=== PATIENT | male | born 1990 | race Two or more races ===

== ENCOUNTER 2022-08-09 13:22 | Emergency (ER) | payer SELFPAY ==
[~2022-08-09] VITALS: Ht 170.2 cm; Wt 80.1 kg
[2022-08-09 14:51] VITALS: BP 148/101
[2022-08-09 16:00] LABS: Potassium 4.1 mmol/L (3.5-5.1)
[2022-08-09 16:01] LABS: Albumin 3.2 g/dL (3.4-5.0); Calcium 9.3 mg/dL (8.5-10.1)
[2022-08-09 16:03] LABS: BUN/Creatinine Ratio 7.4
[2022-08-09 16:06] LABS: Bilirubin, Total 0.3 mg/dL (0.2-1.0); Total Protein 6.9 g/dL (6.4-8.2)
[2022-08-09 16:46] LABS: Basophils # (auto) 0 10 ^3/uL (0-0.2); Eosinophils # (auto) 1.2 10 ^3/uL (0-0.8); Lymphocytes # (auto) 1.7 10 ^3/uL (0.4-5.4); Mean Corpuscular Hemoglobin 28.8 pg (28.0-32.0)
[2022-08-09 16:51] LABS: Basophils % (auto) 0.3 % (0.0-2.0); Eosinophils % (auto) 6.9 % (0.0-7.0); Hematocrit 43.6 % (41.0-53.0); Hemoglobin 14.3 g/dL (13.5-17.5); Lymphocytes % (auto) 10.3 % (10.0-50.0); Mean Corpuscular Hgb Conc. 32.7 g/dL (32.0-36.0); Monocytes % (auto) 11.9 % (0.0-12.0); Neutrophils # (auto) 11.7 10 ^3/uL (1.6-8.6); Neutrophils % (auto) 70.6 % (37.0-80.0); Red Blood Cells 4.96 10^6/uL (4.5-5.90); Red Cell Distribution Width 12.8 % (11.8-14.3); White Blood Cell 16.6 10^3/uL (4.4-10.8)
== END 2022-08-09 16:49 | disposition left against medical advice (07) ==
LOC: ER 13:22
DX: K52.9 Noninfective gastroenteritis and colitis, unspecified (principal); Z53.29 Procedure and treatment not carried out because of patient's decision for other reasons
CPT/HCPCS: 36415; 74176; 80053; 83690; 85025

== ENCOUNTER 2022-08-12 11:07 | Inpatient (IN) | payer BC ==
[~2022-08-12] VITALS: Ht 170.2 cm; Wt 76.7 kg
[2022-08-12 12:51] LABS: Basophils % (auto) 0.3 % (0.0-2.0); Eosinophils # (auto) 1.8 10 ^3/uL (0-0.8); Monocytes # (auto) 1.5 10 ^3/uL (0-1.3); Red Cell Distribution Width 12.8 % (11.8-14.3)
[2022-08-12 12:53] LABS: Basophils # (auto) 0 10 ^3/uL (0-0.2); Hematocrit 43.5 % (41.0-53.0); Hemoglobin 14.5 g/dL (13.5-17.5); Lymphocytes # (auto) 1.5 10 ^3/uL (0.4-5.4); Lymphocytes % (auto) 9.3 % (10.0-50.0); Mean Corpuscular Hemoglobin 29.2 pg (28.0-32.0); Mean Corpuscular Hgb Conc. 33.3 g/dL (32.0-36.0); Mean Corpuscular Volume 87.6 fL (80.0-100.0); Monocytes % (auto) 9.1 % (0.0-12.0); Neutrophils # (auto) 11.5 10 ^3/uL (1.6-8.6); Neutrophils % (auto) 70.3 % (37.0-80.0); Red Blood Cells 4.97 10^6/uL (4.5-5.90); White Blood Cell 16.4 10^3/uL (4.4-10.8)
[2022-08-12 13:27] LABS: Albumin 2.9 g/dL (3.4-5.0); Calcium 8.8 mg/dL (8.5-10.1); Potassium 3.9 mmol/L (3.5-5.1)
[2022-08-12 13:30] LABS: BUN/Creatinine Ratio 9.8; Bilirubin, Total 0.3 mg/dL (0.2-1.0); Total Protein 7.3 g/dL (6.4-8.2)
[2022-08-12] MEDS ORDERED: PANTOPRAZOLE 40 MG/10 ML VIAL INJ IV ONE (14:45)
[2022-08-12] MEDS ORDERED: ONDANSETRON HCL 4 MG/2 ML VIAL IV ONE (14:45)
[2022-08-12] MEDS ORDERED: MORPHINE SULFATE 4 MG/ML SYR/VIAL IV ONE (14:45)
[2022-08-12 14:52] LABS: Urine Specific Gravity 1.024 (1.001-1.035)
[2022-08-12 14:53] LABS: Urine Blood Negative /uL (Negative)
[2022-08-12] MEDS ORDERED: ONDANSETRON HCL 4 MG/2 ML VIAL IV PRN (16:45)
[2022-08-12] MEDS ORDERED: MORPHINE SULFATE INJ 2 MG/ml SYRG IV PRN (16:45)
[2022-08-12] MEDS: SODIUM CHLORIDE 0.9% 1,000 ML IV SCH (23:21)
[2022-08-12] MEDS: metroNIDAZOLE 500MG/100ML 100 ML IV SCH (23:22)
[2022-08-13] MEDS: SODIUM CHLORIDE 0.9% 1,000 ML IV SCH ×3 (04:54→18:03)
[2022-08-13 04:56] LABS: Basophils # (auto) 0 10 ^3/uL (0-0.2); Basophils % (auto) 0.2 % (0.0-2.0); Eosinophils % (auto) 13.2 % (0.0-7.0); Hematocrit 38.1 % (41.0-53.0); Hemoglobin 12.8 g/dL (13.5-17.5); Lymphocytes # (auto) 1.5 10 ^3/uL (0.4-5.4); Lymphocytes % (auto) 9.9 % (10.0-50.0); Mean Corpuscular Hemoglobin 29.3 pg (28.0-32.0); Mean Corpuscular Hgb Conc. 33.5 g/dL (32.0-36.0); Mean Corpuscular Volume 87.5 fL (80.0-100.0); Monocytes # (auto) 1.6 10 ^3/uL (0-1.3); Monocytes % (auto) 10.7 % (0.0-12.0); Neutrophils # (auto) 9.9 10 ^3/uL (1.6-8.6); Nucleated Red Blood Cells % 0.1 %; Red Blood Cells 4.36 10^6/uL (4.5-5.90); Red Cell Distribution Width 12.6 % (11.8-14.3); White Blood Cell 15.1 10^3/uL (4.4-10.8)
[2022-08-13 05:11] LABS: Albumin 2.5 g/dL (3.4-5.0); Calcium 8.1 mg/dL (8.5-10.1); Potassium 3.7 mmol/L (3.5-5.1)
[2022-08-13 05:14] LABS: BUN/Creatinine Ratio 9.6; Bilirubin, Total 0.5 mg/dL (0.2-1.0); Total Protein 6.2 g/dL (6.4-8.2)
[2022-08-13] MEDS: metroNIDAZOLE 500MG/100ML 100 ML IV SCH ×3 (06:57→21:43)
[2022-08-13 08:35] LABS: Folate (Folic Acid) > 24.00 ng/mL (5.38-24)
[2022-08-13] MEDS: cefTRIAXone 1GM/50ML D5W 50 ML IV SCH (09:00)
[2022-08-13] MEDS: PANTOPRAZOLE 40 MG/10 ML VIAL INJ IV SCH (10:00)
[2022-08-13 13:00] VITALS: BP 153/99
[2022-08-13 17:00] VITALS: BP 152/102
[2022-08-13 20:00] VITALS: BP 151/95
[2022-08-13 21:58] VITALS: BP 151/95
[2022-08-14] MEDS: SODIUM CHLORIDE 0.9% 1,000 ML IV SCH ×3 (04:16→18:45)
[2022-08-14 05:00] VITALS: BP 152/102
[2022-08-14] MEDS: hydrALAZINE HCL 20 MG/ML VL IV SCH ×3 (05:35→18:00)
[2022-08-14] MEDS: metroNIDAZOLE 500MG/100ML 100 ML IV SCH ×3 (05:35→21:05)
[2022-08-14 08:00] VITALS: BP 151/95
[2022-08-14 08:57] VITALS: BP 138/107
[2022-08-14] MEDS: cefTRIAXone 1GM/50ML D5W 50 ML IV SCH (09:12)
[2022-08-14] MEDS: PANTOPRAZOLE 40 MG/10 ML VIAL INJ IV SCH (10:31)
[2022-08-14 13:00] VITALS: BP 154/99
[2022-08-14 16:37] VITALS: BP 145/101
[2022-08-14] MEDS ORDERED: ACETAMINOPHEN 325 MG TAB PO PRN (20:00)
[2022-08-14 21:45] VITALS: BP 144/92
[2022-08-15 04:41] VITALS: BP 148/99
[2022-08-15] MEDS: metroNIDAZOLE 500MG/100ML 100 ML IV SCH ×3 (05:22→21:30)
[2022-08-15] MEDS: hydrALAZINE HCL 20 MG/ML VL IV SCH ×5 (05:22→23:06)
[2022-08-15] MEDS: SODIUM CHLORIDE 0.9% 1,000 ML IV SCH ×3 (05:26→21:31)
[2022-08-15 06:31] LABS: Hemoglobin 13.7 g/dL (13.5-17.5); Mean Corpuscular Hemoglobin 29.1 pg (28.0-32.0); Mean Corpuscular Hgb Conc. 33.5 g/dL (32.0-36.0); Mean Corpuscular Volume 86.7 fL (80.0-100.0); Red Blood Cells 4.72 10^6/uL (4.5-5.90)
[2022-08-15 06:55] LABS: Basophils % (manual) 0 (0.0-2.0); Blast Cells 0; Metamyelocytes % 0; Myelocytes % 0; Promyelocytes % 0; Reactive Lymphocytes 0
[2022-08-15 07:02] LABS: Albumin 2.6 g/dL (3.4-5.0); BUN/Creatinine Ratio 5.9; Bilirubin, Total 0.8 mg/dL (0.2-1.0); Calcium 8.7 mg/dL (8.5-10.1); Potassium 4.1 mmol/L (3.5-5.1); Total Protein 5.8 g/dL (6.4-8.2)
[2022-08-15 08:00] VITALS: BP 151/95
[2022-08-15 08:54] VITALS: BP 153/105
[2022-08-15] MEDS: cefTRIAXone 1GM/50ML D5W 50 ML IV SCH (10:35)
[2022-08-15] MEDS: PANTOPRAZOLE 40 MG/10 ML VIAL INJ IV SCH (10:35)
[2022-08-15 11:11] LABS: Band Neutrophils % (manual) 30; Eosinophils % (manual) 20 (0-7); Lymphocytes % (manual) 24 (10.0-50.0); Monocytes % (manual) 10 (0-12)
[2022-08-15 13:00] VITALS: BP 141/110
[2022-08-15 16:54] VITALS: BP 151/91
[2022-08-15 22:00] VITALS: BP 160/103
[2022-08-16] MEDS: SODIUM CHLORIDE 0.9% 1,000 ML IV SCH ×3 (04:05→20:45)
[2022-08-16 05:00] VITALS: BP 142/86
[2022-08-16] MEDS: hydrALAZINE HCL 20 MG/ML VL IV SCH ×3 (06:00→18:00)
[2022-08-16] MEDS: metroNIDAZOLE 500MG/100ML 100 ML IV SCH ×3 (06:01→21:47)
[2022-08-16 08:00] VITALS: BP 151/95
[2022-08-16 09:00] VITALS: BP 147/99
[2022-08-16] MEDS: cefTRIAXone 1GM/50ML D5W 50 ML IV SCH (09:11)
[2022-08-16] MEDS: PANTOPRAZOLE 40 MG/10 ML VIAL INJ IV SCH (10:09)
[2022-08-16 13:00] VITALS: BP 136/79
[2022-08-16 17:00] VITALS: BP 145/97
[2022-08-16] MEDS: methylPREDNISolone SOD SUCC 40 MG/ML VL IV SCH (21:47)
[2022-08-16 22:00] VITALS: BP 151/95
[2022-08-17] MEDS: SODIUM CHLORIDE 0.9% 1,000 ML IV SCH ×2 (04:10→10:17)
[2022-08-17 05:00] VITALS: BP 160/99
[2022-08-17] MEDS: metroNIDAZOLE 500MG/100ML 100 ML IV SCH ×2 (05:29→14:00)
[2022-08-17] MEDS: hydrALAZINE HCL 20 MG/ML VL IV SCH ×3 (05:29→11:53)
[2022-08-17 09:00] VITALS: BP 150/89
[2022-08-17] MEDS: cefTRIAXone 1GM/50ML D5W 50 ML IV SCH (10:10)
[2022-08-17] MEDS: methylPREDNISolone SOD SUCC 40 MG/ML VL IV SCH (10:10)
[2022-08-17] MEDS: PANTOPRAZOLE 40 MG/10 ML VIAL INJ IV SCH (10:10)
[2022-08-17] MEDS ORDERED: PRED20TA2 PO (11:56)
[2022-08-17] MEDS ORDERED: [UNRECOGNIZED DRUG - CODE] PO (12:00)
[2022-08-17] MEDS ORDERED: METR500T PO (12:00)
[2022-08-17] MEDS ORDERED: CIPR-173 PO (12:00)
[2022-08-17 13:00] VITALS: BP 156/90
[2022-08-17 14:10] VITALS: BP 156/90
== END 2022-08-17 15:30 | disposition home or self-care (01) | DRG 391 ==
LOC: ER 11:07 → OVERFLOW 16:51 → WEST WING 08-13 13:20
PROVIDERS: ADMIT Nurse Practitioner Family; ATTEND Internal Medicine
DX: K52.9 Noninfective gastroenteritis and colitis, unspecified (principal); K85.90 Acute pancreatitis without necrosis or infection, unspecified; E44.1 Mild protein-calorie malnutrition; N20.0 Calculus of kidney; D52.9 Folate deficiency anemia, unspecified; E86.0 Dehydration; F10.10 Alcohol abuse, uncomplicated; Z20.822 Contact with and (suspected) exposure to COVID-19; Z68.26 Body mass index [BMI] 26.0-26.9, adult
CPT/HCPCS: 36415; 76705; 80053; 81003; 82150; 82607; 82746; 82962; 83690; 85007; 85025; 85027; 87045; 87426; 87427; 87493; 96361; 96374; 96375; C9113; G0378; J0696; J2405; J3490

== ENCOUNTER 2022-12-14 09:53 | Day surgery (SDC) | payer BC ==
[2022-12-13 10:21] LABS: Basophils # (auto) 0.1 10 ^3/uL (0-0.2); Basophils % (auto) 0.6 % (0.0-2.0); Eosinophils # (auto) 0.3 10 ^3/uL (0-0.8); Hematocrit 42.8 % (41.0-53.0); Hemoglobin 14.8 g/dL (13.5-17.5); Lymphocytes # (auto) 1.6 10 ^3/uL (0.4-5.4); Lymphocytes % (auto) 17.9 % (10.0-50.0); Mean Corpuscular Hemoglobin 29.1 pg (28.0-32.0); Mean Corpuscular Hgb Conc. 34.6 g/dL (32.0-36.0); Monocytes # (auto) 0.7 10 ^3/uL (0-1.3); Monocytes % (auto) 7.9 % (0.0-12.0); Neutrophils # (auto) 6.5 10 ^3/uL (1.6-8.6); Neutrophils % (auto) 70.6 % (37.0-80.0); Red Cell Distribution Width 13.7 % (11.8-14.3); White Blood Cell 9.2 10^3/uL (4.4-10.8)
[2022-12-13 10:51] LABS: Urine Bacteria NONE SEEN /hpf (None Seen); Urine Blood Negative /uL (Negative); Urine WBC 1 /hpf (0 - 3)
[2022-12-13 10:58] LABS: INR 0.92 (0.9-1.15); Partial Thromboplastin Time 30.4 sec (24.6-33.4)
[2022-12-13 10:59] LABS: Albumin 3.7 g/dL (3.4-5.0); BUN/Creatinine Ratio 14.5 (10.0-20.0); Bilirubin, Total 0.7 mg/dL (0.2-1.0); Calcium 9.3 mg/dL (8.5-10.1); Total Protein 7.7 g/dL (6.4-8.2)
[~2022-12-14] VITALS: Ht 167.6 cm; Wt 81.6 kg
[2022-12-14] MEDS ORDERED: SODIUM CHLORIDE LOCK 10 ML ONE (10:15)
[2022-12-14] MEDS: diphenhdrAMINE HCL 50 MG/1 ML VL ONE ×2 (10:36→10:38)
[2022-12-14] MEDS: fentaNYL CITRATE 100 MCG/2 ML VL ONE ×2 (10:36→10:39)
[2022-12-14] MEDS: MIDAZOLAM HCL 5 MG/ML-1ML VIAL ONE ×3 (10:36→10:42)
[2022-12-14] MEDS ORDERED: fentaNYL CITRATE 100 MCG/2 ML VL ONE (10:43)
[2022-12-14 12:00] VITALS: BP 144/90
== END 2022-12-14 12:10 | disposition home or self-care (01) ==
LOC: GI 09:53
PROVIDERS: ATTEND Internal Medicine Gastroenterology
DX: K52.9 Noninfective gastroenteritis and colitis, unspecified (principal); K63.89 Other specified diseases of intestine; K64.8 Other hemorrhoids; I10 Essential (primary) hypertension; Z20.822 Contact with and (suspected) exposure to COVID-19
CPT/HCPCS: 36415; 45380; 80053; 81001; 85025; 85610; 85730; 88305; J1200; J2250; J3010; J7030; U0003